=== PATIENT | male | born 2000 | race Caucasian/White ===

== ENCOUNTER 2019-07-01 18:34 | Emergency (ER) | payer BC ==
[~2019-07-01] VITALS: Ht 170.2 cm; Wt 72.6 kg
[2019-07-01 19:54] VITALS: BP_SYST 129
--- NOTE | 2019-07-01 22:28 | NUR ---
Patient to [facility] chair to [facility] for evaluation. Side rails up. Report given to Candida MARES.
--- NOTE | 2019-07-01 22:30 | NUR ---
Patient complains of hitting head on ground while snowboarding around 2pm today. Pt denies losing consciousness but states that he was dizzy and felt his stomach hurt on the way home. Pt is AAO x 4 and ambulatory. No other injuries/complaints per patient or noted
--- NOTE | 2019-07-01 22:55 | NUR ---
ER Dr. Orellana at bedside examining patient.
[2019-07-01] MEDS ORDERED: IBUPROFEN 600 MG TABLET PO ONE (23:15)
[2019-07-01 23:50] VITALS: BP_SYST 122
--- NOTE | 2019-07-01 23:50 | NUR ---
Patient given written and verbal discharge instructions and verbalizes understanding. ER MD discussed with patient the results and treatment provided. Patient in stable condition. ID arm band removed. Rx of Motrin given. Patient educated on pain management and to follow up with PMD. Pain Scale 0. Opportunity for questions provided and answered. Medication side effect fact sheet provided.
== END 2019-07-01 23:50 | disposition home or self-care (01) ==
LOC: SED 18:34
DX: S09.90XA Unspecified injury of head, initial encounter (principal); W18.39XA Other fall on same level, initial encounter; Y93.23 Activity, snow (alpine) (downhill) skiing, snowboarding, sledding, tobogganing and snow tubing; Y92.89 Other specified places as the place of occurrence of the external cause; Y99.8 Other external cause status
CPT/HCPCS: 70450-TC; 99284